=== PATIENT | female | born 1955 | race Caucasian/White ===

== ENCOUNTER 2024-01-25 13:52 | Outpatient (AMB) | payer MEDICARE, SELFPAY ==
[2024-01-25 14:05] VITALS: BP 140/90; PULSE 64; O2SAT 97; BMI 24.3
--- NOTE | 2024-01-25 14:05 | HO.NEPHOV_ITS ---
Vital Signs 01/25/24 14:05 Height 5 ft 5 in Weight 146 lb 4 oz BMI 24.3 BP 140/90 H Blood Pressure Location Lt brachial Position Sitting Pulse 64 Pulse Source Pulse Oximeter Pulse Oximetry (%) 97 Oxygen Delivery Method Room Air Intake Visit Reasons: Previous pt/ Confirmed Coordinator Of Rehabilitation Services Required: No Accompanied by: Self / Same As Patient Allergies No Known Allergies Allergy (Verified 01/25/24 14:07) HPI Comments Details: I had the privilege of seeing Geeta in follow up of her hypertension. She is quite active taking care of her grand children. Her current anti hypertensive medication is not keeping her BP at goal. She consumes less sodium in the diet. She avoids excess NSAID's. She is not known to have low serum potassium, renal dysfunction, chest pain, edema, PND or orthopnea. She checks her BP at home and has not been at goal. [facility] Medical History (Updated 01/25/24 @ 14:21 by Amandeep Rene MD) Essential (primary) hypertension Chronic kidney disease, stage 3 Anxiety Acute pharyngitis Surgical History (Updated 01/25/24 @ 14:08 by Erum Castro MA) History of cataract surgery Family History Mother Hypertension Colon cancer Father Hypertension Heart disease Paternal Grandfather Stroke Social History (Updated 01/25/24 @ 14:08 by Erum Castro MA) Alcohol intake: never Patient Tobacco Use Status: Never used Tobacco Physical Exam Vital Signs: Last Vital Signs Pulse 64 01/25/24 14:05 BP 140/90 H 01/25/24 14:05 Pulse Ox 97 01/25/24 14:05 Oxygen Delivery Method Room Air 01/25/24 14:05 BMI result Body Mass Index 24.3 Const General: comfortable and no acute distress Orientation/consciousness: patient oriented x3 HEENT Head: Yes normocephalic Mouth: Normal oral and palatal mucosa present Eyes EOM: EOMs intact bilaterally Neck Neck: Yes supple Resp Auscultation: clear to auscultation bilaterally Cardio Jugular venous distension: no JVD Rate: regular rate GI Palpation (GI): Soft to palpation Auscultation: normal bowel sounds General: Yes no CVA tenderness Back/Spine/Pelvis Back: no CVA tenderness Skin General skin exam: no rashes or lesions noted Neuro General: patient oriented x3 and moves all extremities Extrem General: Yes no pedal edema Results Reviewed Nephrology Results: No Data to Display Assessment & Plan Assessment & Plan (1) Essential (primary) hypertension: Code(s): I10 - Essential (primary) hypertension Category: Medical Plan Geeta is on metoprolol and valsartan. Her BP has not been at goal. I increased her valsartan to 120 mg daily. Her electrolytes have been acceptable. Her renal functions are normal. She should maintain increased activity, good hydration, low sodium diet and minimize NSAID's. She was encouraged to monitor BP at home. She may need more medications to keep her BP at goal. I answered all her questions and follow up appointment was given. Medications: New paroxetine HCl 10 mg PO DAILY 90 tabs 0RF Changed From valsartan 80 mg PO DAILY 90 tabs 4RF To valsartan 120 mg (1.5 x 80 mg) PO DAILY 90 tabs 4RF Coding Level of Care Code Est Pt Level 4 (95584) Diagnoses Essential (primary) hypertension I10
== END 2024-01-25 14:28 | disposition home or self-care (01) ==
PROVIDERS: PCP Internal Medicine; Visit Provider Internal Medicine Nephrology
DX: I10 Essential (primary) hypertension (principal)
CPT/HCPCS: 99214

== ENCOUNTER → 2024-01-25 13:52 | Outpatient (BNVA) | payer MEDICARE, SELFPAY | PROVIDERS: PCP Internal Medicine; Visit Provider Internal Medicine Nephrology | DX: I10 Essential (primary) hypertension (principal) | CPT/HCPCS: 99212 ==

== ENCOUNTER 2024-02-22 13:51 | Outpatient (AMB) | payer MEDICARE, SELFPAY ==
--- NOTE | 2024-02-22 14:02 | HO.NEPHOV ---
Vital Signs 02/22/24 14:06 Height 5 ft 5 in Weight 145 lb 4 oz BMI 24.2 BP 140/90 H Blood Pressure Location Lt brachial Position Sitting Pulse 67 Pulse Source Pulse Oximeter Pulse Oximetry (%) 95 Oxygen Delivery Method Room Air Intake Visit Reasons: 2 mon follow up/ Confirmed Activated Sludge Attendant Required: No Accompanied by: Self / Same As Patient Allergies No Known Allergies Allergy (Verified 02/22/24 14:07) HPI Comments Details: I had the privilege of seeing Geeta in follow up of her hypertension. She is quite active taking care of her grand children. Her anti hypertensive medication was not keeping her BP at goal and her valsartan dosage has been increased to 120 mg daily at the last office visit. She consumes less sodium in the diet. She avoids excess NSAID's. She is not known to have low serum potassium, renal dysfunction, chest pain, edema, PND or orthopnea. She checks her BP at home and has not been at goal. [facility] Medical History (Updated 01/25/24 @ 14:21 by Amandeep Rene MD) Essential (primary) hypertension Chronic kidney disease, stage 3 Anxiety Acute pharyngitis Surgical History (Updated 01/25/24 @ 14:08 by Erum Castro MA) History of cataract surgery Family History Mother Hypertension Colon cancer Father Hypertension Heart disease Paternal Grandfather Stroke Social History (Updated 01/25/24 @ 14:08 by Erum Castro MA) Alcohol intake: never Patient Tobacco Use Status: Never used Tobacco Results Reviewed Nephrology Results: No Data to Display Assessment & Plan Assessment & Plan (1) Essential (primary) hypertension: Code(s): I10 - Essential (primary) hypertension Category: Medical Plan Geeta is on metoprolol and valsartan. Her BP has not been at goal. I increased her valsartan to 160 mg daily today to keep her BP at goal . Her electrolytes have been acceptable. Her renal functions are normal. She should maintain increased activity, good hydration, low sodium diet and minimize NSAID's. She was encouraged to monitor BP at home. I answered all her questions and follow up appointment was given. Medications: Changed From valsartan 120 mg (1.5 x 80 mg) PO DAILY 90 tabs 4RF To valsartan 160 mg (2 x 80 mg) PO DAILY 90 tabs 4RF Coding Level of Care Code Est Pt Level 4 (11996) Diagnoses Essential (primary) hypertension I10
[2024-02-22 14:06] VITALS: BP 140/90; PULSE 67; O2SAT 95; BMI 24.2
== END 2024-02-22 14:43 | disposition home or self-care (01) ==
PROVIDERS: PCP Internal Medicine; Visit Provider Internal Medicine Nephrology
DX: I10 Essential (primary) hypertension (principal)
CPT/HCPCS: 99214

== ENCOUNTER → 2024-02-22 13:51 | Outpatient (BNVA) | payer MEDICARE, SELFPAY | PROVIDERS: PCP Internal Medicine; Visit Provider Internal Medicine Nephrology | DX: I10 Essential (primary) hypertension (principal); Z79.899 Other long term (current) drug therapy | CPT/HCPCS: 99212 ==

== ENCOUNTER 2024-04-27 14:18 | Outpatient (AMB) | payer MEDICARE, SELFPAY ==
[2024-04-27 14:53] VITALS: BP 152/80; PULSE 69; O2SAT 97; BMI 24.3
--- NOTE | 2024-04-27 14:53 | HO.NEPHOV_ITS ---
Vital Signs 04/27/24 14:53 Height 5 ft 5 in Weight 146 lb BMI 24.3 BP 152/80 H Blood Pressure Location Lt brachial Position Sitting Pulse 69 Pulse Source Pulse Oximeter Pulse Oximetry (%) 97 Oxygen Delivery Method Room Air Intake Visit Reasons: 2 mon follow up/ Conf Mold Filler Plastic Dolls Required: No Accompanied by: Self / Same As Patient Allergies No Known Allergies Allergy (Verified 04/27/24 14:55) HPI Comments Details: I had the privilege of seeing Geeta in follow up of her hypertension. She is quite active taking care of her grand children. Her anti hypertensive medication was not keeping her BP at goal and her valsartan dosage has been increased to 160 mg daily at the last office visit. She consumes less sodium in the diet. She avoids excess NSAID's. She is not known to have low serum potassium, renal dysfunction, chest pain, edema, PND or orthopnea. She checks her BP at home and has not been at goal. [facility] Medical History (Updated 01/25/24 @ 14:21 by Amandeep Rene MD) Essential (primary) hypertension Chronic kidney disease, stage 3 Anxiety Acute pharyngitis Surgical History History of cataract surgery Family History Mother Hypertension Colon cancer Father Hypertension Heart disease Paternal Grandfather Stroke Social History Alcohol intake: never Patient Tobacco Use Status: Never used Tobacco Physical Exam Vital Signs: Last Vital Signs Pulse 69 04/27/24 14:53 BP 152/80 H 04/27/24 14:53 Pulse Ox 97 04/27/24 14:53 Oxygen Delivery Method Room Air 04/27/24 14:53 BMI result Body Mass Index 24.3 Const General: comfortable and no acute distress Orientation/consciousness: patient oriented x3 HEENT Head: Yes normocephalic Mouth: Normal oral and palatal mucosa present Eyes EOM: EOMs intact bilaterally Neck Neck: Yes supple Resp Auscultation: clear to auscultation bilaterally Cardio Jugular venous distension: no JVD Rate: regular rate GI Palpation (GI): Soft to palpation Auscultation: normal bowel sounds General: Yes no CVA tenderness Back/Spine/Pelvis Back: no CVA tenderness Skin General skin exam: no rashes or lesions noted Neuro General: patient oriented x3 and moves all extremities Extrem General: Yes no pedal edema Results Reviewed Nephrology Results: No Data to Display Assessment & Plan Assessment & Plan (1) Essential (primary) hypertension: Code(s): I10 - Essential (primary) hypertension Category: Medical Plan Geeta is on metoprolol and valsartan. Her BP has not been at goal. I increased her valsartan to 320 mg daily today to keep her BP at goal . Her electrolytes have been acceptable. Her renal functions are normal. She should maintain increased activity, good hydration, low sodium diet and minimize NSAID's. She was encouraged to monitor BP at home. I answered all her questions and follow up appointment was given. Orders: Orders Creatinine Today I10 - Essential (primary) hypertension Blood Urea Nitrogen Today I10 - Essential (primary) hypertension Electrolytes Today I10 - Essential (primary) hypertension Medications: Changed From valsartan 160 mg (2 x 80 mg) PO DAILY 90 tabs 4RF To valsartan 320 mg PO DAILY 90 days 90 tabs 4RF Refilled paroxetine HCl 10 mg PO DAILY 90 tabs 3RF Coding Level of Care Code Est Pt Level 4 (27046) Diagnoses Essential (primary) hypertension I10
== END 2024-04-27 15:12 | disposition home or self-care (01) ==
PROVIDERS: PCP Internal Medicine; Visit Provider Internal Medicine Nephrology
DX: I10 Essential (primary) hypertension (principal)
CPT/HCPCS: 99214

== ENCOUNTER → 2024-04-27 14:18 | Outpatient (BNVA) | payer MEDICARE, SELFPAY | PROVIDERS: PCP Internal Medicine; Visit Provider Internal Medicine Nephrology | DX: I10 Essential (primary) hypertension (principal) | CPT/HCPCS: 99212 ==

== ENCOUNTER 2024-07-27 13:38 | Outpatient (AMB) | payer MEDICARE, SELFPAY ==
--- NOTE | 2024-07-27 13:58 | HO.NEPHOV ---
Vital Signs 07/27/24 13:59 Height 5 ft 5 in Weight 150 lb 6 oz BMI 25.0 BP 130/80 Blood Pressure Location Lt brachial Position Sitting Pulse 84 Pulse Source Pulse Oximeter Pulse Oximetry (%) 96 Oxygen Delivery Method Room Air Intake Visit Reasons: 3 mon follow up- [facility] Tariff Inspector Required: No Accompanied by: Self / Same As Patient Allergies No Known Allergies Allergy (Verified 07/27/24 14:01) HPI Comments Details: Geeta was seen in follow up of her hypertension. She is quite active taking care of her grand children. She consumes less sodium in the diet. She avoids excess NSAID's. She is not known to have low serum potassium, renal dysfunction, chest pain, edema, PND or orthopnea. She checks her BP at home and has been close to goal. [facility] Medical History (Updated 01/25/24 @ 14:21 by Amandeep Rene MD) Essential (primary) hypertension Chronic kidney disease, stage 3 Anxiety Acute pharyngitis Surgical History History of cataract surgery Family History Mother Hypertension Colon cancer Father Hypertension Heart disease Paternal Grandfather Stroke Social History Alcohol intake: never Patient Tobacco Use Status: Never used Tobacco Review of Systems Const All systems reviewed & are unremarkable except as noted in HPI and below Physical Exam Vital Signs: Last Vital Signs Pulse 84 07/27/24 13:59 BP 138/88 07/27/24 13:59 Pulse Ox 96 07/27/24 13:59 Oxygen Delivery Method Room Air 07/27/24 13:59 BMI result Body Mass Index 25.0 Const General: comfortable and no acute distress Orientation/consciousness: patient oriented x3 HEENT Head: Yes normocephalic Mouth: Normal oral and palatal mucosa present Eyes EOM: EOMs intact bilaterally Neck Neck: Yes supple Resp Auscultation: clear to auscultation bilaterally Cardio Jugular venous distension: no JVD Rate: regular rate GI Palpation (GI): Soft to palpation Auscultation: normal bowel sounds General: Yes no CVA tenderness Back/Spine/Pelvis Back: no CVA tenderness Skin General skin exam: no rashes or lesions noted Neuro General: patient oriented x3 and moves all extremities Extrem General: Yes no pedal edema Results Reviewed Nephrology Results: No Data to Display Assessment & Plan Assessment & Plan (1) Essential (primary) hypertension: Code(s): I10 - Essential (primary) hypertension Category: Medical Plan Geeta is on metoprolol and valsartan. Her BP is close to goal after I increased her valsartan to 320 mg along with metoprolol. If her BP trends up, I shall increase her metoprolol. Her electrolytes have been acceptable. Her renal functions are normal. She should maintain increased activity, good hydration, low sodium diet and minimize NSAID's. She was encouraged to monitor BP at home. I answered all her questions and follow up appointment was given. Medications: New metoprolol succinate ER 50 mg PO DAILY 90 tabs 4RF Coding Level of Care Code Est Pt Level 4 (58638) Diagnoses Essential (primary) hypertension I10
[2024-07-27 13:59] VITALS: BP 130/80; PULSE 84; O2SAT 96; BMI 25.0
== END 2024-07-27 14:29 | disposition home or self-care (01) ==
PROVIDERS: PCP Internal Medicine; Visit Provider Internal Medicine Nephrology
DX: I10 Essential (primary) hypertension (principal)
CPT/HCPCS: 99214

== ENCOUNTER → 2024-07-27 13:38 | Outpatient (BNVA) | payer MEDICARE, SELFPAY | PROVIDERS: PCP Internal Medicine; Visit Provider Internal Medicine Nephrology | DX: I10 Essential (primary) hypertension (principal) | CPT/HCPCS: 99212 ==

== ENCOUNTER 2025-01-25 09:54 | Outpatient (AMB) | payer MEDICARE, SELFPAY ==
--- NOTE | 2025-01-25 10:05 | HO.NEPHOV ---
Vital Signs 01/25/25 10:06 Height 5 ft 5 in Weight 153 lb 6 oz BMI 25.5 BP 156/90 H Blood Pressure Location Lt brachial Position Sitting Pulse 59 Pulse Source Pulse Oximeter Pulse Oximetry (%) 96 Oxygen Delivery Method Room Air Intake Visit Reasons: 6 mon follow up-[facility] Object Oriented Developer Required: No Accompanied by: Self / Same As Patient Allergies No Known Allergies Allergy (Verified 01/25/25 10:06) HPI Comments Details: Geeta was seen in follow up of her hypertension. She is quite active taking care of her grand children. She consumes less sodium in the diet. She avoids excess NSAID's. She is not known to have low serum potassium, renal dysfunction, chest pain, edema, PND or orthopnea. She checks her BP at home and has not been close to goal. [facility] Medical History (Updated 01/25/24 @ 14:21 by Amandeep Rene MD) Essential (primary) hypertension Chronic kidney disease, stage 3 Anxiety Acute pharyngitis Surgical History History of cataract surgery Family History Mother Hypertension Colon cancer Father Hypertension Heart disease Paternal Grandfather Stroke Social History Alcohol intake: never Patient Tobacco Use Status: Never used Tobacco Review of Systems Const All systems reviewed & are unremarkable except as noted in HPI and below Physical Exam Vital Signs: Last Vital Signs BP 156/90 H 01/25/25 10:06 BMI result Body Mass Index 25.5 Const General: comfortable and no acute distress Orientation/consciousness: patient oriented x3 HEENT Head: Yes normocephalic Mouth: Normal oral and palatal mucosa present Eyes EOM: EOMs intact bilaterally Neck Neck: Yes supple Resp Auscultation: clear to auscultation bilaterally Cardio Jugular venous distension: no JVD Rate: regular rate GI Palpation (GI): Soft to palpation Auscultation: normal bowel sounds General: Yes no CVA tenderness Back/Spine/Pelvis Back: no CVA tenderness Skin General skin exam: no rashes or lesions noted Neuro General: patient oriented x3 and moves all extremities Extrem General: Yes no pedal edema Results Reviewed Nephrology Results: No Data to Display Assessment & Plan Assessment & Plan (1) Essential (primary) hypertension: Code(s): I10 - Essential (primary) hypertension Category: Medical Plan Geeta is on metoprolol and valsartan. Her BP is not close to goal at home even after I increased her valsartan to 320 mg along with metoprolol. I put a 24 hour BPM on her today and she is going to follow with me next week. Her electrolytes have been acceptable. Her renal functions are normal. She should maintain increased activity, good hydration, low sodium diet and minimize NSAID's.I answered all her questions and follow up appointment was given for next week. Orders: Orders AMB 24 HR B/P Monitor PLACEMENT Today I10 - Essential (primary) hypertension Coding Level of Care Code Est Pt Level 4 (42025) Diagnoses Essential (primary) hypertension I10
[2025-01-25 10:06] VITALS: BP 156/90; PULSE 59; O2SAT 96; BMI 25.5
--- OUTSIDE RECORDS SUMMARY | 2025-01-25 11:31 | XMS_ITS | Clinical Summary ---
Author Organization [facility] Address [address] [place] [phone] Phone Care Team Providers Care Tear Down Man Name Role Phone Kana Allison MD Primary Care Provider + [phone] Allergies No known active allergies Medications metoprolol succinate XL (TOPROL XL) 50 MG 24 hr tablet Take 1 tablet by mouth 1 (one) time each day Active PARoxetine (PAXIL) 10 MG tablet Take 1 tablet by mouth 1 (one) time each day Active valsartan (DIOVAN) 80 MG tablet Take 1 tablet (80 mg total) by mouth 1 (one) time each day 90 tablet 3 12/29/2022 Active Active Problems Problem Noted Date Diagnosed Date Hypertension 01/12/2022 Chronic kidney disease stage 3 01/09/2022 Essential hypertension 01/09/2022 Resolved Problems Problem Noted Date Diagnosed Date Resolved Date Anxiety 01/09/2022 01/09/2022 Acute pharyngitis 05/19/2020 01/09/2022 Family History Medical History Relation Comments Heart disease Father Hypertension Father Cancer Mother Colon cancer Hypertension Mother Stroke Paternal Grandfather Relation Status Comments Father Mother Paternal Grandfather Social History Tobacco Use Types Packs/Day Years Used Date Smoking Tobacco: Never Smokeless Tobacco: Never Tobacco Cessation:Counseling Given: Not Answered Alcohol Use Standard Drinks/Week Comments Never 0 (1 standard drink = 0.6 oz pur e alcohol) Comments Unknown Sex and Gender Information Value Date Recorded Sex Assigned at Not on file Legal Sex Female 4:37 PM EST Gender Identity Not on file Sexual Orientation Not on file Last Filed Vital Signs Vital Sign Reading Time Taken Comments Blood Pressure 146/80 05/04/2023 1:30 PM EDT Pulse 62 05/04/2023 1:30 PM EDT Temperature - - Respiratory Rate - - Oxygen Saturation 98% 02/02/2023 1:02 PM EDT Inhaled Oxygen Concentration - - Weight 66.8 kg (147 lb 3.2 oz) 05/04/2023 1:30 P M EDT Height - - Body Mass Index - - Plan of Treatment Health Maintenance Due Date Last Done Comments Breast Cancer Screening 1955 Pneumococcal Vaccine: 50+ Ye ars (1 of 2 - PCV) 1973 Colorectal Cancer Screening: Annual FOBT 2003 Colorectal Cancer Screening: Colonoscopy 2003 Colorectal Cancer Screening: Sigmoidoscopy 2003 Influenza Vaccine (Season Ended) 2025 Hepatitis B Vaccine Aged Out No longe r eligible based on patient's age to complete this topic Insurance [facility] [employer]([id number]) [facility] [employer]([id number]) Care Teams Tear Down Man Relationship Specialty Start Date End Date Kana Allison MD [address] [place] [address] PCP - General 08/15/19
== END 2025-01-25 10:44 | disposition home or self-care (01) ==
LOC: HO.HKAS 09:54
PROVIDERS: PCP Internal Medicine; Visit Provider Internal Medicine Nephrology
DX: I10 Essential (primary) hypertension (principal)
CPT/HCPCS: 99214

== ENCOUNTER → 2025-01-25 09:54 | Outpatient (BNVA) | payer MEDICARE, SELFPAY | PROVIDERS: PCP Internal Medicine; Visit Provider Internal Medicine Nephrology | DX: I10 Essential (primary) hypertension (principal) | CPT/HCPCS: 99212 ==

== ENCOUNTER → 2025-01-26 10:51 | Outpatient (BNVA) | payer MEDICARE, SELFPAY | PROVIDERS: PCP Internal Medicine; Visit Provider Internal Medicine Nephrology | DX: I10 Essential (primary) hypertension (principal) | CPT/HCPCS: 93786; 93788 ==

== ENCOUNTER 2025-02-01 09:26 | Outpatient (AMB) | payer MEDICARE, SELFPAY ==
--- NOTE | 2025-02-01 09:29 | HO.NEPHOV ---
Vital Signs 02/01/25 09:30 Height 5 ft 5 in Weight 153 lb BMI 25.5 BP 160/80 H Blood Pressure Location Lt brachial Position Sitting Pulse 62 Pulse Source Pulse Oximeter Pulse Oximetry (%) 97 Oxygen Delivery Method Room Air Intake Visit Reasons: F/U 1 week( double book if needed) Production Support Developer Required: No Accompanied by: Grand Child Allergies No Known Allergies Allergy (Verified 02/01/25 09:30) HPI Comments Details: Geeta was seen in follow up of her hypertension. She is quite active taking care of her grand children. She consumes less sodium in the diet. She avoids excess NSAID's. She is not known to have low serum potassium, renal dysfunction, chest pain, edema, PND or orthopnea. She checks her BP at home and has not been close to goal but had a repeat 24 hour BP which showed well controlled BP [facility] Medical History (Updated 01/25/24 @ 14:21 by Amandeep Rene MD) Essential (primary) hypertension Chronic kidney disease, stage 3 Anxiety Acute pharyngitis Surgical History History of cataract surgery Family History Mother Hypertension Colon cancer Father Hypertension Heart disease Paternal Grandfather Stroke Social History Alcohol intake: never Patient Tobacco Use Status: Never used Tobacco Review of Systems Const All systems reviewed & are unremarkable except as noted in HPI and below Physical Exam Vital Signs: Last Vital Signs Pulse 62 02/01/25 09:30 BP 160/80 H 02/01/25 09:30 Pulse Ox 97 02/01/25 09:30 Oxygen Delivery Method Room Air 02/01/25 09:30 BMI result Body Mass Index 25.5 Const General: comfortable and no acute distress Orientation/consciousness: patient oriented x3 HEENT Head: Yes normocephalic Mouth: Normal oral and palatal mucosa present Eyes EOM: EOMs intact bilaterally Neck Neck: Yes supple Resp Auscultation: clear to auscultation bilaterally Cardio Jugular venous distension: no JVD Rate: regular rate GI Palpation (GI): Soft to palpation Auscultation: normal bowel sounds General: Yes no CVA tenderness Back/Spine/Pelvis Back: no CVA tenderness Skin General skin exam: no rashes or lesions noted Neuro General: patient oriented x3 and moves all extremities Extrem General: Yes no pedal edema Results Reviewed Nephrology Results: No Data to Display Assessment & Plan Assessment & Plan (1) Essential (primary) hypertension: Code(s): I10 - Essential (primary) hypertension Category: Medical Plan Geeta is on metoprolol and valsartan. Her BP is not close to goal at home but she had 24 hour BPM which showed well controlled TIARA. She can continue valsartan 320 mg along with metoprolol 50 mg daily. Her electrolytes have been acceptable. Her renal functions are normal. She should maintain increased activity, good hydration, low sodium diet and minimize NSAID's.I answered all her questions and follow up appointment given. Orders: Orders Creatinine Today I10 - Essential (primary) hypertension Blood Urea Nitrogen Today I10 - Essential (primary) hypertension Electrolytes Today I10 - Essential (primary) hypertension Coding Level of Care Code Est Pt Level 4 (79520) Diagnoses Essential (primary) hypertension I10
[2025-02-01 09:30] VITALS: BP 160/80; PULSE 62; O2SAT 97; BMI 25.5
--- OUTSIDE RECORDS SUMMARY | 2025-02-01 10:22 | XMS_ITS | Clinical Summary ---
Author Organization [facility] Address [address] [place] [phone] Phone Care Team Providers Care Reception Agent Name Role Phone Kana Allison MD Primary Care Provider + [phone] Allergies No known active allergies Medications metoprolol [...] patient's age to complete this topic Insurance [facility] [employer]([id number]) [facility] [employer]([id number]) Care Teams Reception Agent Relationship Specialty Start Date End Date Kana Allison MD [address] [place] [address] PCP - General 08/15/19
== END 2025-02-01 09:51 | disposition home or self-care (01) ==
PROVIDERS: PCP Internal Medicine; Visit Provider Internal Medicine Nephrology
DX: I10 Essential (primary) hypertension (principal)
CPT/HCPCS: 99214

== ENCOUNTER → 2025-02-01 09:26 | Outpatient (BNVA) | payer MEDICARE, SELFPAY | PROVIDERS: PCP Internal Medicine; Visit Provider Internal Medicine Nephrology | DX: I10 Essential (primary) hypertension (principal) | CPT/HCPCS: 99212 ==